=== PATIENT | female | born 1970 | race American Indian/Alaskan Native ===

== ENCOUNTER 2017-10-26 07:14 | Emergency (ER) | payer OTHER ==
[2017-10-26 08:09] VITALS: BP 159/103
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
[2017-10-26] MEDS: FLEXERIL PO ONE (10:24)
== END 2017-10-26 10:29 | disposition home or self-care (01) ==
LOC: ED 07:14
DX: M25.562 Pain in left knee (principal); V43.52XA Car driver injured in collision with other type car in traffic accident, initial encounter; Y93.9 Activity, unspecified; Y99.9 Unspecified external cause status; Y92.410 Unspecified street and highway as the place of occurrence of the external cause
CPT/HCPCS: 99282